=== PATIENT | female | born 1965 | race African-American/Black ===

== ENCOUNTER 2021-10-20 12:30 | Inpatient (IN) | payer MEDICAID ==
[~2021-10-20] VITALS: Ht 175.3 cm; Wt 65.8 kg
[2021-10-20 12:35] VITALS: BP_SYST 160
[2021-10-20 13:10] LABS: CALCIUM 9.6 mg/dL (8.4-11.0); CREATININE 0.75 mg/dL (0.55-1.30); POTASSIUM 3.9 mmol/L (3.5-5.1)
[2021-10-20] MEDS ORDERED: DIPHENHYDRAMINE INJ 50 MG/ML VIAL IVP ONE (13:15)
[2021-10-20] MEDS ORDERED: NITROGLYCERIN 0.4 MG TAB.SUBL SL ONE (13:15)
[2021-10-20] MEDS ORDERED: METOCLOPRAMIDE HCL 10 MG/2 ML VIAL IVP ONE (13:15)
[2021-10-20] MEDS ORDERED: ASPIRIN 325 MG TABLET PO ONE (13:15)
[2021-10-20 13:18] LABS: ALBUMIN 3.5 g/dL (3.4-4.8); TOTAL BILIRUBIN 0.1 mg/dL (0.0-1.0)
[2021-10-20 13:19] LABS: BASOPHILS # (AUTO) 0.1 K/uL (0.0-0.2); BASOPHILS % (AUTO) 1.1 % (0.0-2.0); EOSINOPHILS # (AUTO) 0.1 K/uL (0.0-0.4); EOSINOPHILS % (AUTO) 2.7 % (0.0-4.0); HEMATOCRIT 44.1 % (36-48); HEMOGLOBIN 14.3 g/dL (12.0-16.0); LYMPHOCYTES # (AUTO) 2.3 K/uL (1.0-5.5); LYMPHOCYTES % (AUTO) 43.5 % (20.5-51.5); MEAN CORPUSCULAR HEMOGLOBIN 27 pg (27-31); MEAN CORPUSCULAR HGB CONC 33 % (32-36); MEAN CORPUSCULAR VOLUME 83 fL (79.0-98.0); MONOCYTES # (AUTO) 0.5 K/uL (0.0-1.0); MONOCYTES % (AUTO) 10.1 % (1.7-9.3); NEUTROPHILS # (AUTO) 2.2 K/uL (1.8-7.7); NEUTROPHILS % (AUTO) 42.6 % (40.0-70.0); PLATELET COUNT (AUTO) 322 K/uL (130-430); RED BLOOD CELL COUNT(AUTO) 5.32 MIL/uL (4.2-6.2); RED CELL DISTRIBUTION WIDTH 15.3 % (9.0-15.0)
[2021-10-20 13:22] LABS: WHITE BLOOD COUNT (AUTO) 5.2 K/uL (4.8-10.8)
[2021-10-20 15:50] VITALS: BP_SYST 134
[2021-10-20] MEDS ORDERED: NITROGLYCERIN 0.4 MG TAB.SUBL SL PRN (16:15)
[2021-10-20] MEDS ORDERED: IBUPROFEN 800 MG TABLET PO PRN (16:45)
[2021-10-20] MEDS ORDERED: LISINOPRIL 10 MG TABLET (PRINIVIL) PO ONE (17:00)
[2021-10-20] MEDS ORDERED: ATORVASTATIN 20 MG TABLET PO ONE (17:00)
[2021-10-20 19:00] VITALS: BP_SYST 119
[2021-10-20] MEDS: ENOXAPARIN SODIUM 40 MG/0.4 ML SYRINGE SUBCUT SCH (21:04)
[2021-10-21] VITALS (7 sets, daily range): BP systolic 119–153
[2021-10-21] MEDS: ATORVASTATIN 20 MG TABLET PO SCH (09:00)
[2021-10-21] MEDS: LISINOPRIL 10 MG TABLET (PRINIVIL) PO SCH (09:00)
[2021-10-21] MEDS: ASPIRIN 81 MG TAB.CHEW PO SCH (09:00)
[2021-10-21] MEDS ORDERED: POTA8TAB66 PO (11:28)
[2021-10-21] MEDS ORDERED: TICA90TA PO (11:28)
[2021-10-21] MEDS ORDERED: ASPI-1155 PO (11:28)
[2021-10-21] MEDS ORDERED: PRO40 PO (11:28)
[2021-10-21] MEDS ORDERED: NEU300 PO (11:28)
[2021-10-21] MEDS ORDERED: FLUO40CA8 PO (11:28)
[2021-10-21] MEDS ORDERED: LEVO75TA7 PO (11:28)
[2021-10-21] MEDS: ENOXAPARIN SODIUM 40 MG/0.4 ML SYRINGE SUBCUT SCH (20:24)
[2021-10-22 01:46] LABS: CALCIUM 9.4 mg/dL (8.4-11.0); CREATININE 0.75 mg/dL (0.55-1.30); POTASSIUM 3.4 mmol/L (3.5-5.1)
[2021-10-22 02:01] LABS: ALBUMIN 3.1 g/dL (3.4-4.8); THYROID STIMULATING HORMONE 26.65 uIu/mL (0.36-3.74); TOTAL BILIRUBIN 0.1 mg/dL (0.0-1.0)
[2021-10-22 02:16] VITALS: BP_SYST 140
[2021-10-22 08:00] VITALS: BP_SYST 119
[2021-10-22] MEDS: ASPIRIN 81 MG TAB.CHEW PO SCH (08:39)
[2021-10-22] MEDS: ATORVASTATIN 20 MG TABLET PO SCH (08:39)
[2021-10-22] MEDS: LISINOPRIL 10 MG TABLET (PRINIVIL) PO SCH (08:40)
[2021-10-22 12:00] VITALS: BP_SYST 120
[2021-10-22 16:00] VITALS: BP_SYST 120
== END 2021-10-22 19:50 | disposition home or self-care (01) | DRG 203 ==
LOC: SED 12:30 → STU 14:16
PROVIDERS: ADMIT Family Medicine; ATTEND Family Medicine
DX: M94.0 Chondrocostal junction syndrome [Tietze] (principal); E03.9 Hypothyroidism, unspecified; F32.9 Major depressive disorder, single episode, unspecified; I10 Essential (primary) hypertension; E78.5 Hyperlipidemia, unspecified; Z20.822 Contact with and (suspected) exposure to COVID-19; I25.10 Atherosclerotic heart disease of native coronary artery without angina pectoris; Z79.82 Long term (current) use of aspirin; Z87.891 Personal history of nicotine dependence; Z95.5 Presence of coronary angioplasty implant and graft; Z98.84 Bariatric surgery status
CPT/HCPCS: 36415; 70450-TC; 71045; 76376; 80053; 80061; 83735; 83880; 84443; 84484; 85025; 93005; 93306; 96361; 96365; 96375; 99285; G0378; J1200; J1650; J2765

== ENCOUNTER 2023-01-04 06:43 | Emergency (ER) | payer MEDICAID ==
[~2023-01-04] VITALS: Ht 167.6 cm; Wt 61.2 kg
[~2023-01-04 06:43] MED LIST: ASPI-1155 PO; CHOL100038 PO; FLUO40CA8 PO; LEVO175C2 PO; MULT-1089 PO; POTA8TAB66 PO; PRO40 PO; PROP10DR4 OP; VIS10 PO
--- NOTE | 2023-01-04 07:05 | NUR ---
Patient to ER bed 03 to gown for evaluation. Side rails up.
[2023-01-04 07:14] VITALS: BP_SYST 146
--- NOTE | 2023-01-04 07:34 | NUR ---
ASSESMENT PER FLOWSHEET. PT NOT IN GOWN. PT SEATED AT HER DAUGHTER'S BEDSIDE. LOCATED PT AND ESCORTED HER TO HER ROOM FOR EXAM. PT W/MULTIPLE COMPLAINTS PER TRIAGE AND ERMD NOTE. PRIMARY COMPLAINT BEING LEFT LEG PAIN INTERMITTENTLY INCREASING IN FREQUENCY RANGING FROM PAIN SCALE: 7 TO 9 PER PT. PT W/ NOTED OPPOSITIONAL BEHAVIOR. COMFORT MEASURES AND SUPPORTIVE CARE INITIATED.
--- NOTE | 2023-01-04 08:29 | NUR ---
PT FREQUENTLY LEAVES HER OR HER DAUGHTERS BS. SEEN WALKING TOWARD REGISTRATION/TRIAGE AREA. STATING HER DAUGHTER HAD A WORK COMP INJURY AND NEEDED TO HAVE HER JOB PAY FOR HER DAUGHTER'S INJURY. SHE ALSO REQUESTED A WC ALTHOUGH SHE WAS INFORMED THAT OUR FACILITY DOES NOT HAVE THE SELF WHEELED FOLDING WC, WE ONLY HAVE THE PUSH HANDLE WC. SHE IS NOW REQUESTING A WALKER. CHARGE NURSE INFORMED. PT. DURING ULTRASOUND OF LEG, TELLS US TECH, SHE ALSO HAS LEFT SHOULDER PAIN. DR. VELIZ INFORMED. TO CONTINUE PLAN OF CARE.
--- NOTE | 2023-01-04 08:40 | NUR ---
TO CT VIA [facility].
--- NOTE | 2023-01-04 09:30 | NUR ---
PT UPDATED CONTINUOUSLY. TO CONTINUE TO MONITOR. ALL REQUESTS AND NEEDS MET AT THIS TIME. PT STATES RN STUDENT WAS RUDE. INFORMED CHARGE NURSE AND SPOKE W/ FRUIT RECEIVER RE:CUSTOMER SERVICE. STUDENT NURSE HELPFUL THROUGHOUT ED COURSE. NO ABHORRENT BEHAVIOR NOTED
[2023-01-04] MEDS ORDERED: NAPR-1172 PO (10:27)
--- NOTE | 2023-01-04 10:35 | NUR ---
VERBAL ACI GIVEN BY DR. VELIZ. WRITTEN ACI SIGNED BY PATIENT. PT VERBAL UNDERSTANDING.
--- NOTE | 2023-01-04 10:36 | NUR ---
PT ON PHONE W/ UNKNOWN CONSTITUTION PARTY MAKING MULTIPLE THREATS AGAINST STAFF AND ANCILLARY PERSONNEL (CONSISENT W/ BEHAVIOR THROUGHOUT ED COURSE).
== END 2023-01-04 10:35 | disposition home or self-care (01) ==
LOC: SED 06:43
DX: M54.31 Sciatica, right side (principal); M79.661 Pain in right lower leg; I10 Essential (primary) hypertension; Z79.899 Other long term (current) drug therapy
CPT/HCPCS: 76376; 93971; 99284

== ENCOUNTER 2023-01-21 10:31 | Inpatient (IN) | payer MEDICAID ==
[~2023-01-21] VITALS: Ht 154.9 cm; Wt 71.7 kg
[~2023-01-21 10:31] MED LIST changes: +NAPR-1172 PO
[2023-01-21 10:35] VITALS: BP_SYST 154; PULSE 52; RESP 18; TEMP 97; O2SAT 98
--- NOTE | 2023-01-21 10:45 | NUR ---
Patient to ER bed 6 to gown for evaluation. Side rails up. Report given to JACQUI WEINER.
--- NOTE | 2023-01-21 10:48 | NUR ---
PATIENT BIB BLS AMBULANCE FROM HOME C/O FULL BODY PAIN 03/13. PATIENT BEGAN C/O CHEST PAIN UPON ARRIVAL TO ED RADIATING TO LEFT ARM & HEADACHE. HX OF CA, HTN, HLD, PSYCH, ANXIETY. PATIENT SPEAKING CLEARLY AND ANSWERING QUESTIONS BUT USING ASL WHILE SPEAKING. ASKED F PATIENT IS HARD OF HEARING BUT DID NOT RECEIVE AN ANSWER. PATIENT HAD "REGISTERED SERVICE DOG" AT BEDSIDE. NKA. MARKHAM.
--- NOTE | 2023-01-21 11:10 | NUR ---
DR STEINER AT BEDSIDE
[2023-01-21] MEDS ORDERED: ASPIRIN 81 MG TAB.CHEW PO ONE (11:15)
[2023-01-21] MEDS ORDERED: KETOROLAC TROMETHAMINE 15 MG VIAL IVP ONE (11:15)
[2023-01-21] MEDS ORDERED: NITROGLYCERIN 0.4 MG TAB.SUBL SL ONE (11:15)
[2023-01-21 11:36] LABS: BASOPHILS # (AUTO) 0.1 K/uL (0.0-0.2); BASOPHILS % (AUTO) 1.4 % (0.0-2.0); EOSINOPHILS # (AUTO) 0.1 K/uL (0.0-0.4); HEMATOCRIT 40.1 % (36-48); HEMOGLOBIN 13.1 g/dL (12.0-16.0); LYMPHOCYTES # (AUTO) 1.6 K/uL (1.0-5.5); LYMPHOCYTES % (AUTO) 36.4 % (20.5-51.5); MEAN CORPUSCULAR HEMOGLOBIN 28 pg (27-31); MEAN CORPUSCULAR HGB CONC 33 % (32-36); MEAN CORPUSCULAR VOLUME 85 fL (79.0-98.0); MONOCYTES # (AUTO) 0.3 K/uL (0.0-1.0); NEUTROPHILS # (AUTO) 2.3 K/uL (1.8-7.7); NEUTROPHILS % (AUTO) 52.2 % (40.0-70.0); PLATELET COUNT (AUTO) 309 K/uL (130-430); RED BLOOD CELL COUNT(AUTO) 4.72 MIL/uL (4.2-6.2); RED CELL DISTRIBUTION WIDTH 14.2 % (9.0-15.0); WHITE BLOOD COUNT (AUTO) 4.4 K/uL (4.8-10.8)
[2023-01-21 11:54] LABS: ALANINE AMINOTRANSFERASE 0 U/L (12-78); ALBUMIN 3.1 g/dL (3.4-4.8); ANION GAP 3 (5-15); ASPARTATE AMINOTRANSFERASE 10 U/L (10-37); CALCIUM 8.6 mg/dL (8.4-11.0); CHLORIDE 108 mmol/L (98-107); CREATININE 0.84 mg/dL (0.55-1.30); GFR AFRICAN AMERICAN 91 mL/min (>90); GLUCOSE 88 mg/dL (70-99); TOTAL BILIRUBIN 0.3 mg/dL (0.0-1.0); UREA NITROGEN, BLOOD 11 mg/dL (8-21)
[2023-01-21] MEDS ORDERED: LIP80 PO (12:39)
[2023-01-21] MEDS ORDERED: LISI40TA13 PO (12:39)
[2023-01-21] MEDS ORDERED: CARI350T27 PO (12:39)
[2023-01-21] MEDS ORDERED: TICA90TA PO (12:39)
[2023-01-21] MEDS ORDERED: IBUP-1970 PO (12:39)
[2023-01-21] MEDS ORDERED: ACYC400T19 PO (12:39)
[2023-01-21] MEDS ORDERED: METO25TA3 PO (12:39)
[2023-01-21] MEDS ORDERED: MIRT-92 PO (12:39)
--- NOTE | 2023-01-21 15:06 | NUR ---
Admit bed requested Patient will be admitted to care of Dr. KONG. Admitted to TELEMETRY unit. Diagnosis CHEST PAIN Inpatient (Yes or No) Y Observation (Yes or No) N Orientation concerns or request close to nursing station (Yes or No) N Covid Status N/A On vent or bipap N Isolation requirements N Needs a sitter N From Home (Yes or if No enter name of facility) Y Requires Dialysis (Yes or No) N Med Rec Completed (Yes of No) Y
[2023-01-21] MEDS ORDERED: IBUPROFEN 800 MG TABLET PO PRN (16:00)
[2023-01-21] MEDS ORDERED: NAPROXEN 250 MG TABLET PO PRN (16:00)
[2023-01-21] MEDS ORDERED: ONDANSETRON HCL 4 MG/2 ML VIAL IVP PRN (16:15)
[2023-01-21] MEDS ORDERED: ACETAMINOPHEN 325 MG TABLET PO PRN ×2 (16:15→16:30)
--- NOTE | 2023-01-21 18:50 | NUR ---
PATIENT WAS ADMITTED TO TELEMETRY UNIT 100A. WAS ASSISTED TO TRANSFER TO BED. PATIENT IN STABLE CONDITION UPON TRANSFER TO UNIT. GAVE REPORT TO GEOVANNY AT NURSES STATION. PATIENT BELONGING'S LIST AND MED REC COMPLETED PRIOR TO ADMIT.
--- NOTE | 2023-01-21 19:15 | NUR ---
ED NURSE HERE TO GIVE REPORT. DURING REPORT NOTIFIED THAT PATIENT WAS LEAVING ROOM. PATIENT WAS ACCOMPAM NIED BACK TO ROOM, BED ALARMS ON, CALL LIGHT IN PLACE, SIDE RAILS UP X 2. STATED THAT SHE WAS GOING TO ER TO GET HER CELL PHONE. INSTRUCTED TO CALL FOR ASSIST AND INSTRUCTED IN USE OF CALL LIGHT. VERBALIZED AN UNDERSTANDING
[2023-01-21 20:15] VITALS: BP_SYST 124; PULSE 62; RESP 18; TEMP 97.4; O2SAT 97
[2023-01-21] MEDS: PEG 400/HYPROMELLOSE/GLYCERIN 15 ML DROPS OP SCH (21:00)
[2023-01-21] MEDS ORDERED: TICAGRELOR 90 MG TABLET PO SCH (21:00)
[2023-01-21] MEDS: NORMAL SALINE 5 ML DISP.SYRIN IVF SCH (22:00)
[2023-01-21] MEDS: ATORVASTATIN 20 MG TABLET PO SCH (22:27)
[2023-01-21] MEDS: POTASSIUM CHLORIDE 8 MEQ TABLET.SA PO SCH (22:29)
[2023-01-21] MEDS: PANTOPRAZOLE SODIUM 40 MG TAB PO SCH (22:30)
[2023-01-21] MEDS: lisinopriL 20 MG TABLET PO SCH (22:36)
[2023-01-21] MEDS: ACYCLOVIR 400 MG TABLET PO SCH (22:39)
[2023-01-21] MEDS: carisoprodoL 350 MG TABLET PO PRN (22:39)
[2023-01-21] MEDS: MIRTAZAPINE 15 MG TABLET PO SCH (22:40)
[2023-01-21 22:45] VITALS: BP_SYST 136; PULSE 61; RESP 18; TEMP 97.6; O2SAT 97
[2023-01-22] VITALS (7 sets, daily range): BP systolic 119–141; PULSE 54–82; RESP 16–20; TEMP 96.8–97.9; O2SAT 94–99
[2023-01-22] MEDS ORDERED: KETOROLAC TROMETHAMINE 30 MG VIAL IVP PRN
--- NOTE | 2023-01-22 01:26 | NUR ---
NOTIFIED ACCEPTING MORTUARY. LISANDRO JI WILL SOFTWARE INTEGRATOR IN AM 01/22/23 Addendum: 01/22/23 at 0155 by [facility], RN RN WRONG PATIENT. WRONG CHART
--- NOTE | 2023-01-22 01:36 | NUR ---
CONSULTATION PAGED/CALLED Reason for Consultation: CHEST PAIN Person Who was Notified: GLENNY Consulting Physician: JAMILA FERNANDES Concrete Mixer Truck Driver Specialty: CARDIOLGY Ordering Physician: KLARISSA CASTANEDA
--- NOTE | 2023-01-22 04:52 | NUR ---
REFUSED LAB DRAWS. WANTS LABS TO BE DRAWN FROM IV SITE. WANTS A PICC LINE OR CENTRAL LINE SO SHE CAN HAVE LABS DRAWN FROM THERE EDUCATION PROVIDED
[2023-01-22] MEDS: NORMAL SALINE 5 ML DISP.SYRIN IVF SCH ×3 (07:08→21:33)
[2023-01-22] MEDS: LEVOTHYROXINE SODIUM 0.1 MG TABLET PO SCH (07:08)
[2023-01-22] MEDS: LEVOTHYROXINE SODIUM 0.075 MG TABLET PO SCH (07:09)
--- NOTE | 2023-01-22 08:00 | NUR ---
Start of shift Pt in wheelchair and requesting a staff member take her and her Service dog out for dog's needs (toileting), Security on side of pt as well to assist pt out of front lobby.
--- NOTE | 2023-01-22 08:15 | NUR ---
Note Pt back in room and sitting on side of bed eating her breakfast. Pt's bed in low position and side rails raised at this time. No SOB/resp distress or any chest pain/discomfort noted at this time. Call light within reach.
[2023-01-22] MEDS ORDERED: KETOROLAC TROMETHAMINE 15 MG VIAL IVP PRN (08:45)
[2023-01-22] MEDS: PEG 400/HYPROMELLOSE/GLYCERIN 15 ML DROPS OP SCH ×2 (09:00→21:00)
[2023-01-22] MEDS: PANTOPRAZOLE SODIUM 40 MG TAB PO SCH ×2 (09:19→21:18)
[2023-01-22] MEDS: MULTIVITAMINS TAB 1 TABLET PO SCH (09:19)
[2023-01-22] MEDS: FLUoxetine HCL 20 MG CAPSULE (PROzac) PO SCH (09:20)
[2023-01-22] MEDS: METOPROLOL SUCCINATE 25 MG TAB.SR.24H (TOPROL XL) PO SCH (09:20)
[2023-01-22] MEDS: CHOLECALCIFEROL (VITAMIN D3) 2,000 UNIT TABLET PO SCH (09:20)
[2023-01-22] MEDS: POTASSIUM CHLORIDE 8 MEQ TABLET.SA PO SCH ×2 (09:20→21:19)
[2023-01-22] MEDS: ACYCLOVIR 400 MG TABLET PO SCH ×3 (09:21→21:20)
[2023-01-22] MEDS: ASPIRIN 81 MG TAB.CHEW PO SCH (09:21)
--- NOTE | 2023-01-22 12:10 | NUR ---
Note Pt was seen and assessed by Dr Silver at 0820am and Dr Jose Dacosta at 1110am. Questions/concerns were answered at this time. Pt's SCD's were applied. No needs noted and call light within reach.
--- NOTE | 2023-01-22 12:30 | NUR ---
Social Service Assessment Met with patient at bedside. At entry into the room, the patient's service dog was barking, however the patient was able to calm the dog down. I introduced myself to the patient, and she indicated she was in agreement to speaking with me. The patient was on the phone with her [facility] Adhesive Bandage Machine Operator and requested the call her back in about 30 minutes. The patient states she resides in a downstairs apartment with her daughter who services as her IHSS provider. Per patient, she receives 508 a week. She uses a rolator walker and a 4-prong cane. She receives support from her daughter and son. She does have a spouse, however he is incarcerated for something he was cleared of a few years earlier". Her PCP is Dr. Le in [place] and her psychiatrist is Dr. Bey in [place]. The discharge plan is to return home with her daughter. The patient stated she needs resources on housing services. I advised her that I would bring her information on what the hospital has to give out. Throughout the conversation, the patient appeared to have delusions and hallucinations to the reality. She was anxious during certain parts of the conversation. The patient states she has never abused alcohol and does not have mental health issues. She states she talks to her SW just to "see how things are". I discussed the dog that the patient has at bedside, and advised her that should she choose to keep the dog with her, she is responsible for feeding the dog and cleaning up after it. The patient became irritated and advised that the hospital is to do for her dog everything that they are doing for her. I advised her it is her responsibility to provide food for the dog and to ensure that the dog urinates outside. I suggested that she coordinate the dog's needs with her visitors as the hospital is not responsible to walk the dog or take the dog outside. The patient became upset and stated "if the dog shits right here on the floor then you are going to pick it up!" I advised the patient that I would reach out to her daughter to get some more incite about the discharge plan, her mental health needs (if any), and the discharge plan. The patient also gave me permission to reach out to her [facility], Luz. Prior to leaving the station, I spoke with RN Daja BAH about the patient's demeanor. I inquired about a telepsyche for delusions and hallucinations that the patient presented. She indicated she would reach out to the drBelén to ask. I informed her of the bazaar conversation I had with the patient and advised her that i would be reaching out to the family. I called Luz and left a voicemail requesting a return phone call. While leaving a message, I discovered that the patient SW and psychiatrist are the same person. I actually left a message for Dr. Luz Bey. I called and spoke to the daughter, Joselito Trevino. She states that she is the [facility] provider. She states she and the patient are in the process of being evicted and the housing information would be beneficial. I inquired about her assistance with the dog, and she advised that the patient is a lot calmer then what she had been and is more relaxed, so she will look at taking the dog home for the mother. She states the patient has had a limited mental decline and her anxiety is possibly related to the eviction process. She states the patient has had frequent head trauma, due to her constantly falling. She states the patient "is not crazy or mentally off". Dr. Luz Bey: [phone] daughter, Joselito Trevino: [phone]
--- NOTE | 2023-01-22 15:32 | NUR ---
CONSULTATION PAGED/CALLED Reason for Consultation: [] HALLUCINATIONS AND DELUSIONAL THOUGHTS Person Who was Notified: [] MARKELL Consulting Physician: [] DR RUFF Custom Ski Maker Specialty: [] PSYCH Ordering Physician: [] DR TONYA RUFF SAID THAT HE WILL TRY TO CALL BACK AT 1900 TODAY OR TOMORROW MORNING.
--- NOTE | 2023-01-22 15:45 | NUR ---
Note Pt requesting RN call Dr Dacosta for order for PICC placement so blood work can be drawn from this site. Pt does not want to be drawn for labs. Dr Dacosta just returned call and was notified by RN of pt's request for PICC placement and Lupus testing. Dr Dacosta will see pt tomorrow and speak to pt's concerns at that time. Pt's son at bedside the last 30 minutes. Call light within reach.
--- NOTE | 2023-01-22 15:51 | NUR ---
Nutrition Note RD was consulted by pt's primary RN to speak w/ pt regarding diet preferences as pt has been asking for a "bariatric diet" that consists of high-proteins. She was concerned w/ her service dog not getting any nutrition and wants to feed them w/ additional proteins that she receives. RD obtained food preferences and noted in Waterfall nutrition software. RD spoke w/ CNO regarding plan for high-protein diet as well as snacks between meals, and she agreed that this would be fine. RD spoke w/ dietetics professor to relay plan for additional protein and snacks be sent to pt's room. RD to F/U as per nutrition care standards.
--- NOTE | 2023-01-22 18:15 | NUR ---
END OF SHIFT Pt's daughter at bedside - dog was walked by family member. Pt's sitting up in bed and eating her dinner. Pt's tele unit attached and intact all shift. LAC IV intact and patent. Pt's bed in low position and side rails raised. Pt ambulates independently to restroom with steady gait in room, when pt ambulates in hallway pt uses a cane. Pt has her SCD's sleeves on, SCD machine off. Pt was maintained with safety precautions all shift. Pt was checked on q1' and PRN all shift for needs and care. No severe pain/discomfort noted in legs or head at this time. Call light within reach.
--- NOTE | 2023-01-22 19:15 | NUR ---
OPENING NOTE REPORT RECEIVED FROM DAYSHIFT NURSE. PATIENT RECEIVED LYING IN BED, AWAKE, NO S/S OF ACUTE DISTRESS. BREATHING EVEN AND UNLABORED. IV SITE PATENT, NO SIGNS OF INFILTRATION OR INFECTION NOTED. CALL LIGHT WITH PATIENT. BED IS LOCKED AND AT LOWEST POSITION. WILL CONTINUE TO MONITOR.
[2023-01-22] MEDS: ATORVASTATIN 20 MG TABLET PO SCH (21:18)
[2023-01-22] MEDS: MIRTAZAPINE 15 MG TABLET PO SCH (21:18)
[2023-01-22] MEDS: lisinopriL 20 MG TABLET PO SCH (21:19)
[2023-01-22] MEDS: carisoprodoL 350 MG TABLET PO PRN (21:19)
--- NOTE | 2023-01-22 23:06 | NUR ---
ROUNDS PATIENT IN BED, RESTING. NO SIGNS OF DISCOMFORT. CHEST RISE AND FALL EVEN BILATERALLY. ALL NEEDS MET. CALL LIGHT WITH PATIENT. WILL MONITOR.
--- NOTE | 2023-01-23 03:00 | NUR ---
ROUNDS NO CHANGE FROM PREVIOUS. ALL NEEDS MET. WILL MONITOR.
[2023-01-23 05:55] LABS: BASOPHILS % (AUTO) 0.8 % (0.0-2.0); EOSINOPHILS # (AUTO) 0.1 K/uL (0.0-0.4); EOSINOPHILS % (AUTO) 2.5 % (0.0-4.0); HEMATOCRIT 38.7 % (36-48); HEMOGLOBIN 12.7 g/dL (12.0-16.0); LYMPHOCYTES # (AUTO) 2.2 K/uL (1.0-5.5); LYMPHOCYTES % (AUTO) 48.5 % (20.5-51.5); MEAN CORPUSCULAR HEMOGLOBIN 28 pg (27-31); MEAN CORPUSCULAR HGB CONC 33 % (32-36); MEAN CORPUSCULAR VOLUME 85 fL (79.0-98.0); MONOCYTES # (AUTO) 0.3 K/uL (0.0-1.0); NEUTROPHILS % (AUTO) 42.2 % (40.0-70.0); PLATELET COUNT (AUTO) 278 K/uL (130-430); RED BLOOD CELL COUNT(AUTO) 4.57 MIL/uL (4.2-6.2); WHITE BLOOD COUNT (AUTO) 4.6 K/uL (4.8-10.8)
[2023-01-23] MEDS: LEVOTHYROXINE SODIUM 0.1 MG TABLET PO SCH (06:17)
[2023-01-23] MEDS: NORMAL SALINE 5 ML DISP.SYRIN IVF SCH (06:17)
[2023-01-23] MEDS: LEVOTHYROXINE SODIUM 0.075 MG TABLET PO SCH (06:17)
[2023-01-23] MEDS: carisoprodoL 350 MG TABLET PO PRN (06:20)
[2023-01-23 06:30] LABS: ALBUMIN 2.8 g/dL (3.4-4.8); CALCIUM 8.3 mg/dL (8.4-11.0); CREATININE 0.68 mg/dL (0.55-1.30); PHOSPHORUS 3.4 mg/dL (2.7-4.5); THYROID STIMULATING HORMONE 3.34 uIu/mL (0.34-4.82); TOTAL BILIRUBIN 0.3 mg/dL (0.0-1.0)
[2023-01-23 06:37] LABS: ERYTHROCYTE SEDIMENTATION RATE 32 MM/HR (0-20)
--- NOTE | 2023-01-23 06:39 | NUR ---
CLOSING NOTE PATIENT IN BED, RESTING. NO S/S OF ACUTE DISTRESS. BREATHING EVEN AND UNLABORED. IV SITE PATENT, NO SIGNS OF INFILTRATION OR INFECTION NOTED. ALL NEEDS MET THROUGHOUT SHIFT. FALL, SAFETY PRECAUTIONS MAINTAINED THROUGHOUT SHIFT. WILL CONTINUE TO MONITOR UNTIL PATIENT CARE IS ENDORSED TO ONCOMING DAYSHIFT NURSE.
[2023-01-23 07:54] VITALS: BP_SYST 97; PULSE 65; RESP 18; TEMP 97.2; O2SAT 97
--- NOTE | 2023-01-23 08:00 | NUR ---
Start of shift. Pt drowsy and states she will eat her breakfast, which is on bedside tray, after she is more fully awake. Bed in low position and side rails raised. Pt refuses bed alarm as she gets OOB independently to restroom. IV in left forearm intact and patent. Tele unit attached and intact at this time. Call light within reach. No needs noted.
--- NOTE | 2023-01-23 08:32 | NUR ---
Note Tele unit was dc'd and returned to clinical research monitor.
[2023-01-23] MEDS: METOPROLOL SUCCINATE 25 MG TAB.SR.24H (TOPROL XL) PO SCH (08:58)
[2023-01-23] MEDS: PEG 400/HYPROMELLOSE/GLYCERIN 15 ML DROPS OP SCH (08:59)
[2023-01-23] MEDS: FLUoxetine HCL 20 MG CAPSULE (PROzac) PO SCH (09:09)
[2023-01-23] MEDS: ASPIRIN 81 MG TAB.CHEW PO SCH (09:09)
[2023-01-23] MEDS: MULTIVITAMINS TAB 1 TABLET PO SCH (09:09)
[2023-01-23] MEDS: PANTOPRAZOLE SODIUM 40 MG TAB PO SCH (09:10)
[2023-01-23] MEDS: ACYCLOVIR 400 MG TABLET PO SCH (09:10)
[2023-01-23] MEDS: CHOLECALCIFEROL (VITAMIN D3) 2,000 UNIT TABLET PO SCH (09:10)
[2023-01-23] MEDS: POTASSIUM CHLORIDE 8 MEQ TABLET.SA PO SCH (09:10)
--- NOTE | 2023-01-23 09:25 | NUR ---
FOLLOWED UP THE CONSULT FOR TELEPSYCH. INSPECTOR AND ADJUSTER [employer] TODAY IS ALEXANDRA BUSH. SPOKE TO
--- NOTE | 2023-01-23 09:30 | NUR ---
Note Pt was seen and assessed by Dr Silver at 0755am and Dr Jose Dacosta at 0915am at bedside, questions/concerns were answered. Pt was given verbal discharge instructions by both MD's for follow up care by PCP upon discharge from the hospital.
[2023-01-23 11:00] VITALS: BP_SYST 130; PULSE 59; RESP 16; TEMP 97.1; O2SAT 94
[2023-01-23 12:18] VITALS: BP_SYST 110; PULSE 66; RESP 18; TEMP 97.5; O2SAT 98
--- NOTE | 2023-01-23 12:40 | NUR ---
DISCHARGE Pt's IV in LFA was dc'd - site benign. No bleeding/drainage or swelling noted. Pt was given discharge instructions and questions/concerns were answered. No chest pain/discomfort or head pain/discomfort noted. Pt stable. Pt's daughter at side and helped pt pack her belongings and check side table/drawers for belongings. Pt was checked on all shift for needs and care, pt was maintained with safety precautions all shift. Pt off the floor via wheelchair with all her belongings, cane and discharge paperwork, to private car. Pt dressed in her blue gown.
== END 2023-01-23 12:45 | disposition home or self-care (01) | DRG 203 ==
LOC: SED 10:31 → STU 15:54 → SMU 01-23 08:35
PROVIDERS: ADMIT Preventive Medicine Preventive Medicine/Occupational Environmental Medicine; ATTEND Preventive Medicine Preventive Medicine/Occupational Environmental Medicine
DX: M94.0 Chondrocostal junction syndrome [Tietze] (principal); E44.1 Mild protein-calorie malnutrition; I25.10 Atherosclerotic heart disease of native coronary artery without angina pectoris; E03.9 Hypothyroidism, unspecified; F32.A Depression, unspecified; I10 Essential (primary) hypertension; R51.9 Headache, unspecified; G47.00 Insomnia, unspecified; E78.5 Hyperlipidemia, unspecified; E55.9 Vitamin D deficiency, unspecified; K21.9 Gastro-esophageal reflux disease without esophagitis; F41.9 Anxiety disorder, unspecified; R53.81 Other malaise; E66.01 Morbid (severe) obesity due to excess calories; Z68.29 Body mass index [BMI] 29.0-29.9, adult
CPT/HCPCS: 36415; 70450-TC; 71045; 76376; 80053; 80061; 83735; 83880; 84100; 84443; 84484; 85025; 85651-TC; 93005; 93306; 96374; 99285; G0378; J1885

== ENCOUNTER 2024-02-11 23:25 | Emergency (ER) | payer MEDICAID ==
[~2024-02-11] VITALS: Ht 170.2 cm; Wt 690.8 kg
[~2024-02-11 23:25] MED LIST changes: +ACYC400T19 PO; +CARI350T27 PO; +IBUP-1970 PO; +LIP80 PO; +LISI40TA13 PO; +METO25TA3 PO; +MIRT-92 PO; +TICA90TA PO
[2024-02-11 23:42] VITALS: BP_SYST 116; PULSE 105; RESP 18; TEMP 97.5; O2SAT 97
[2024-02-12] MEDS ORDERED: CLIN-142 PO (01:26)
[2024-02-12] MEDS ORDERED: [UNRECOGNIZED DRUG - CODE] MM (01:46)
[2024-02-12 01:53] VITALS: BP_SYST 119; PULSE 97; RESP 18; TEMP 97.3; O2SAT 98
== END 2024-02-12 01:53 | disposition home or self-care (01) ==
LOC: SED 23:25
DX: L98.498 Non-pressure chronic ulcer of skin of other sites with other specified severity (principal); R68.2 Dry mouth, unspecified; I10 Essential (primary) hypertension; Z91.018 Allergy to other foods; Z79.899 Other long term (current) drug therapy; Z79.2 Long term (current) use of antibiotics
CPT/HCPCS: 99283